=== PATIENT | male | born 1995 | race Caucasian/White ===

== ENCOUNTER 2020-06-01 14:45 | Emergency (ER) | payer SELFPAY ==
[2020-06-01 15:51] LABS: BASOPHIL 0.5 % (0-2); EOSINOPHIL 1.4 % (0-5); HCT 45.6 % (42.0-52.0); HGB 15.3 g/dl (13.2-18.0); LYMPHOCYTE 25.2 % (15-48); MCH 29.3 pg (25.0-31.0); MCHC 33.6 g/dL (32.0-36.0); MCV 87.4 fL (78.0-100.0); MPV 10.7 fL (6.0-9.5); NEUTROPHIL 66.7 % (41-80); NRBC 0; PLT 249 K/uL (150-400); RBC 5.22 M/uL (4.70-6.00); RDW 12.5 % (11.5-14.0); WBC 8.1 K/uL (4.0-10.5)
[2020-06-01 16:23] LABS: BUN/CREAT RATIO (CALC) 13.5 RATIO; CREATININE 0.74 mg/dL (0.67-1.17); POTASSIUM 3.5 mmol/L (3.5-5.1)
[2020-06-01] MEDS ORDERED: FIORICET1 EACH PO (16:34)
[2020-06-01 16:40] LABS: BILIRUBIN NEGATIVE (NEGATIVE); BLOOD NEGATIVE Ery/uL (NEGATIVE); CLARITY CLEAR (CLEAR); COLOR YELLOW (YELLOW); GLUCOSE (U) NORMAL (NORMAL); LEUKOCYTES NEGATIVE Leu/uL (NEGATIVE); NITRITE NEGATIVE (NEGATIVE); PROTEIN NEGATIVE (NEGATIVE); SPECIFIC GRAVITY 1.025 (1.001-1.030); UROBILINOGEN 0.2 mg/dL (0.2-1.0)
== END 2020-06-01 16:44 | disposition home or self-care (01) ==
LOC: FER 14:45
PROVIDERS: Nurse Practitioner Family
DX: G43.909 Migraine, unspecified, not intractable, without status migrainosus (principal)
CPT/HCPCS: 36415; 70450; 80048; 81003; 85025; J1100; J1885; J2405; J7030